=== PATIENT | female | born 1990 | race Hispanic/Latino ===

== ENCOUNTER 2018-11-02 15:55 | Outpatient (CLI) | payer MEDICAID ==
[2018-11-02] MEDS ORDERED: LACTATED RINGERS 500 ML IV ONE (18:09)
[2018-11-02] MEDS ORDERED: BICITRA PO ONE (18:12)
--- NOTE | 2018-11-02 18:21 | Event Note ---
Date: 11/02/18 Pt reports pain midline under xyphoid process that comes and goes, seems to be worse with standing. Patient denies feeling ctx, cramping, leaking or bleeding and reports + FM. pt reports seeing [facility] yesterday and they felt it was gallstones but she did not receive instructions FOR F/U. Abd palpated soft and nontender. Pt reports "drinking an entire bottle of pepto" to help ease the pain. Advised she should not be using peptobismal during . Pt normotensive, VSSAF. She denies any nausea and vomiting. Will give bictra and draw LFTs. Dr. Matthew consulted.
[2018-11-02 19:32] VITALS: BP 131/60
[2018-11-02 19:33] LABS: Alanine Aminotransferase 13 units/L (7-56); Albumin 3.5 g/dL (3.9-5)
[2018-11-02 19:44] LABS: Bilirubin,Direct < 0.2 mg/dL (0-0.2)
--- NOTE | 2018-11-02 20:07 | Event Note ---
Date: 11/02/18 pt reports relief after bicitra. Discussed gas pain and indigestion. pt verbalizes understanding, plan for d/c home with Pepcid RX, encouraged to call for any questions or concerns.
== END 2018-11-02 20:30 | disposition home or self-care (01) ==
LOC: TRG 15:55 → LD 15:56 → TRG 20:30
PROVIDERS: ATTEND Obstetrics & Gynecology
DX: O26.893 Other specified pregnancy related conditions, third trimester (principal); K30 Functional dyspepsia; R14.1 Gas pain; O47.03 False labor before 37 completed weeks of gestation, third trimester; Z3A.36 36 weeks gestation of pregnancy
CPT/HCPCS: 36415; 59025; 80076; 96360; J7120

== ENCOUNTER 2018-11-21 09:09 | Outpatient (CLI) | payer MEDICAID ==
--- NOTE | 2018-11-21 12:17 | Ultrasound Report ---
Pelvic Ultrasound with biophysical profile analysis HISTORY: maternal obesity wellbeing. TECHNIQUE: Grayscale and color Doppler imaging performed. COMPARISON: None FINDINGS: There is a single viable intrauterine gestation which is cephalic in presentation. Heart ra te is 118 bpm. BÁRBARA is 21 cm. The overall EGA is 39 weeks and 2 days by evaluating the biparietal diam eter, head circumference, abdominal circumference, and femoral length. The estimated delivery date is 11/26/2018. Placenta is seen anteriorly. On biophysical profile, the fetus received a score of 8 out of 8 when evaluating breathing movements, movements, posterior/tone, and BÁRBARA. IMPRESSION: 1. Single viable intrauterine gestation as outlined above. 2. Normal BPP. Signer Name: Brennen Pinedo MD Signed: 11/21/2018 12:12 PM Workstation Name: [id number]
[2018-11-21 12:22] VITALS: BP 124/75
== END 2018-11-21 12:50 | disposition home or self-care (01) ==
LOC: TRG 09:09
PROVIDERS: ATTEND Obstetrics & Gynecology
DX: O47.1 False labor at or after 37 completed weeks of gestation (principal); O26.893 Other specified pregnancy related conditions, third trimester; R10.13 Epigastric pain; Z3A.38 38 weeks gestation of pregnancy
CPT/HCPCS: 59025; 76816; 76819

== ENCOUNTER 2018-11-25 07:21 | Inpatient (IN) | payer MEDICAID ==
[2018-11-25] MEDS ORDERED: LACTATED RINGERS 1,000 ML ONE (07:54)
[2018-11-25] MEDS ORDERED: SUBLIMAZE ONE (08:06)
[2018-11-25] MEDS ORDERED: ZOFRAN ONE (08:07)
--- NOTE | 2018-11-25 08:25 | History and Physical Report ---
History of Present Illness Date of examination: 11/25/18 Date of admission: 11/25/18 07:29 Chief complaint: my water broke History of present illness: Pt presents to triage in active labor and SROM. States water broke at 0630 and was brownish in color. As per RN meconium is present. Pt desires epidural. EDC Confirmation: 11/26/2018 Gestational Age: 9 3/7 weeks Past History : 6 Term Births: 1 Premature Births: 1 Living Children: 2 Para: 2 Mult. Births: 0 Prev : 0 Aborta: 3 Elect. Ab: 0 Spont. Ab: 3 Ectopics: 0 # 1 Delivery date: 10/08/2012 Weeks Gestation: 41 Delivery type: Anesthesia type: epidural Infant Sex: Female weight: 7#8 Comments: Vac ext # 2 Delivery date: 02/03/2017 Weeks Gestation: 35? 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 of genital herpes: no Partner hx. of genital herpes: no Rash, Viral, or Febrile illness since last LMP? no Varicella/Chicken Pox Status: Previous Disease Genetic History Congenital Heart Defect: Mom: no Dad: no Becky Disease: Mom: no Dad: no Thalassemia Mom: no Dad: no Neural Tube Defect Mom: no Dad: no Down's Syndrome Mom: no Dad: yes Comments: FOB cousin Bunny-Sachs Mom: no Dad: no Sickle Cell Disease/Trait Mom: no Dad: no Hemophilia Mom: no Dad: no Muscular Dystrophy Mom: no Dad: no Cystic Fibrosis Mom: no Dad: no Daniele Chorea Mom: no Dad: no Mental Retardation Mom: no Dad: no Fragile X Mom: no Dad: no Other Genetic/Chromosomal Disorder Mom: no Dad: no Child w/other defect Mom: no Dad: no Enviromental Exposures Enviromental Exposures Reviewed Xray Exposure: no Medication, drug, or alcohol use since LMP: no Chemical/Other Exposure: no Exposure to Cat Liter: no Hx of Parvovirus (Fifth Disease): no Occupational Exposure to Children: none Current Allergies (reviewed today): * LATEX (Critical) * TRAMADOL (Critical) Past History Past Medical History: kidney stones Past Surgical History: other (benign tumor removed as a child) 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) Family/Genetic History: other (see hpi) - Obstetrical History Expected Date of Delivery: 11/26/18 Actual Gestation: 39 Week(s) 6 Day(s) : 6 Para: 2 Hx # Term Pregnancies: 1 Number of Pregnancies: 1 Spontaneous Abortions: 3 Induced : 0 Number of Living Children: 2 Medications and Allergies Allergies Allergy/AdvReac Type Severity Reaction Status Date / Time Latex, Natural Rubber Allergy Swelling Verified 03/14/16 17:13 tramadol Allergy Swelling Verified 11/21/18 09:46 watermelon Allergy Swelling Verified 03/14/16 17:15 Home Medications Medication Instructions Recorded Confirmed Last Taken Type Vit,Blaise 74/Iron/Folic 1 each PO DAILY 11/21/18 11/21/18 11/21/18 07:00 History [ Low Iron Tablet] 1 Review of Systems All systems: negative - Vital Signs Vital signs: Vital Signs Temp 97.0 F L 11/25/18 08:06 Temp Pulse Resp BP Pulse Ox 97.0 F L 11/25/18 08:06 - Obstetrical FHR: category 1 (difficult to trace due to body habitus) Uterine Contraction Monitor Mode: Internal Cervical Dilatation: 9.5 Cervical Effacement Percentage: 100 station: 0 Uterine Contraction Pattern: Regular Uterine Tone Measurement Phase: Resting Uterine Contraction Intensity: Moderate Results Result Diagrams: 11/25/18 08:10 All other labs normal. Assessment and Plan - Patient Problems (1) 39 weeks gestation of Current Visit: Yes Status: Acute (2) Active labor at term Current Visit: Yes Status: Acute Plan to address problem: -comfortable with epidural in place -anticipate (3) Meconium in amniotic fluid Current Visit: Yes Status: Acute (4) Morbid obesity due to excess calories Current Visit: Yes Status: Acute Plan to address problem: -no meconium seen on my examination -NICU to Resp to be present at time of delivery. -pt made aware of what meconium is and what will happen at time of delivery as well a risk of aspiration of the meconium
[2018-11-25] MEDS ORDERED: BRETHINE IVP PRN (08:28)
[2018-11-25] MEDS ORDERED: BRETHINE SUB-Q PRN (08:28)
[2018-11-25] MEDS ORDERED: MINERAL OIL PO PRN (08:28)
[2018-11-25] MEDS ORDERED: SUBLIMAZE IV PRN (08:28)
[2018-11-25 08:35] LABS: Hematocrit 34.5 % (30.3-42.9); Hemoglobin 11.7 gm/dl (10.1-14.3); Mean Corpuscular HGB Conc 34 % (30-34); Mean Corpuscular Volume 84 fl (79-97); Platelet Count 198 K/mm3 (140-440); Red Cell Distribution Width 14.7 % (13.2-15.2)
[2018-11-25] MEDS ORDERED: NARCAN 2 MG/2 ML IV PRN (08:41)
--- NOTE | 2018-11-25 08:41 | Anesthesia Consultation ---
Anesthesia Consult and Med Hx Date of service: 11/25/18 - Airway Anesthetic Teeth Evaluation: Good ROM Head & Neck: Adequate Mental/Hyoid Distance: Adequate Mallampati Class: Class II Intubation Access Assessment: Good - Pulmonary Exam CTA: Yes - Cardiac Exam Cardiac Exam: RRR - Pre-Operative Health Status ASA Pre-Surgery Classification: ASA2 Proposed Anesthetic Plan: Epidural - Pulmonary Hx Asthma: No - Cardiovascular System Hx Hypertension: No - Central Nervous System Hx Seizures: No Hx Psychiatric Problems: No - Endocrine Hx Renal Disease: No Hx Hypothyroidism: No Hx Hyperthyroidism: No - Hematic Hx Anemia: No Hx Sickle Cell Disease: No - Other Systems Hx Alcohol Use: No
[2018-11-25] MEDS ORDERED: MARCAINE 0.25% INFILTRATI ONE (08:47)
[2018-11-25] MEDS ORDERED: PITOCin/NS 20 UNIT/1000ML DRIP 20 UNITS/1,000 ML BAG IV SCH (09:00)
[2018-11-25] MEDS ORDERED: PITOCin/NS 30 UNIT/500ML 30 UNITS/500 ML BAG IV SCH (09:00)
[2018-11-25] MEDS ORDERED: fentaNYL-BUPIV 2 MCG/ML-0.125% 200 MCG/100 ML BAG EPIDURAL SCH (09:00)
[2018-11-25] MEDS ORDERED: XYLOCAINE 2% INFILTRATI ONE (09:00)
[2018-11-25] MEDS ORDERED: METHERGINE IM ONE ×2 (10:28→11:22)
[2018-11-25] MEDS ORDERED: LACTATED RINGERS 1,000 ML IV SCH (11:00)
--- NOTE | 2018-11-25 11:05 | Procedure Note ---
OB Delivery Note - Delivery Date of Delivery: 11/25/18 Surgeon: ROSA MUÑOZ Estimated blood loss: other (400) - Vaginal Delivery presentation: vertex Delivery position: OA Intrapartum events: meconium Delivery induction: none Delivery monitor: external FHT, external uterine Route of delivery: Delivery placenta: spontaneous (intact) Episiotomy: none Delivery laceration: 2nd degree (perienal and periruethral and left labial) Anesthesia: intravenous, epidural Delivery comments: Delivery as above. Infants head and ant shoulders delivered within 3 t0 5 pushes. There was no shoulder dystocia. Cord clamped x 2 and cut times one. was initially placed on maternal abdomen and then was taken to the [place] [facility] and placed. NICU team arrived shortly after delivery. Placenta delivered spontaneously intact. Laceration noted and repaired as noted above. EbL 400ml. - Infant A at 1 minute: 8 at 5 minutes: 9 Gender: Female (8lbs 2oz)
[2018-11-25] MEDS ORDERED: ZOFRAN IV PRN (11:06)
[2018-11-25] MEDS ORDERED: PHENERGAN PO PRN (11:06)
[2018-11-25] MEDS ORDERED: BENADRYL PO PRN (11:06)
[2018-11-25] MEDS ORDERED: MILK OF MAGNESIA PO PRN (11:06)
[2018-11-25] MEDS ORDERED: TYLENOL PO PRN (11:06)
[2018-11-25] MEDS ORDERED: DULCOLAX PR PRN (11:06)
[2018-11-25] MEDS ORDERED: TUCKS PAD TP PRN (11:06)
[2018-11-25] MEDS ORDERED: LANSINOH TP PRN (11:06)
[2018-11-25] MEDS ORDERED: PHENERGAN PR PRN (11:06)
[2018-11-25] MEDS: IBUPROFEN PO SCH ×3 (11:20→23:07)
[2018-11-25] MEDS ORDERED: SODIUM CHLORIDE FLUSH SYRINGE 10 ML IV NR (12:00)
[2018-11-25 23:10] LABS: Hematocrit 29.7 % (30.3-42.9); Hemoglobin 10.2 gm/dl (10.1-14.3)
[2018-11-26] MEDS: IBUPROFEN PO SCH (05:59)
--- NOTE | 2018-11-26 06:44 | Post Anesthesia Evaluation ---
- Post Anesthesia Evaluation Patient Participated: Yes Airway Patent: Yes Stable Respiratory Function: Yes Nausea/Vomiting: No Temp > 96.8F: Yes Pain Manageable: Yes Adequeate Hydration: Yes Anesthesia Complications: No Block Receding Appropriately: Yes Patient on Ventilator: No
--- NOTE | 2018-11-26 08:21 | Discharge Summary ---
Providers - Providers Date of Admission: 11/25/18 07:29 Date of discharge: 11/26/18 (patient desires discharge today) Attending physician: ROSA MUÑOZ Primary care physician: NELLI LEIGH Hospitalization Reason for admission: labor Condition: Good Pertinent studies: post delivery H&H 10.2/29.7, patient denies any dizziness or feeling faint with ambulation or position changes Procedures: Hospital course: uncomplicated and course Disposition: DC-01 TO HOME OR SELFCARE Core Measure Documentation - Palliative Care Palliative Care/ Comfort Measures: Not Applicable - Core Measures Any of the following diagnoses?: none Exam - Constitutional Vitals: Temp Pulse Resp BP Pulse Ox 98.7 F 64 16 104/78 97 11/26/18 04:00 11/26/18 04:00 11/26/18 04:00 11/26/18 04:00 11/25/18 16:18 General appearance: Present: no acute distress, well-nourished - EENT Eyes: Present: PERRL ENT: hearing intact, clear oral mucosa - Neck Neck: Present: supple, normal ROM - Respiratory Respiratory effort: normal Respiratory: bilateral: CTA - Cardiovascular Rhythm: regular Heart Sounds: Present: S1 & S2. Absent: rub, click - Extremities Extremities: pulses symmetrical, No edema Peripheral Pulses: within normal limits - Abdominal General gastrointestinal: Present: soft, non-tender, non-distended, normal bowel sounds Female genitourinary: Present: normal - Integumentary Integumentary: Present: clear, warm, dry - Musculoskeletal Musculoskeletal: gait normal, strength equal bilaterally - Psychiatric Psychiatric: appropriate mood/affect, intact judgment & insight - Neurologic Neurologic: CNII-XII intact, moves all extremities - Additional findings Additional findings: Patient reports feeling well, denies any complaints or concerns at this time. Fundus is firm, ML, U/1. Vaginal bleeding is minimal, patient denies any heavy bleeding or large clots. Patient reports pain is well controlled with medications, she reports a mild BARAJAS since last night, better with motrin. Pt would like to try tylenol this morning. Patient denies any visual disturbances, RUQ or epigastric pain, or other s/s. DTRs 2+, assessment WNL, BPs WNL. DWP PIH s/s, she denies any history or current symptoms. Encouraged pt to call with any signs or changes in assessment. Patient denies any dizziness or feeling faint with ambulation or position changes. Pt reports infant is doing well, she is attempting breast feeding, but mostly bottle feeding. Tips for discussed. Encouraged pt to increase water intake and frequent BF sessions. Patient desires discharge today. Will f/u in office in 4 weeks for ppv, pt plans for BTL. Plan Activity: no restrictions Diet: regular Wound: open to air, keep clean and dry Follow up with: NELLI LEIGH MD [Primary Care Provider] - 12/24/18 (Congratulations! Please call [phone] to schedule your appointment in 4 weeks. Please call with any other questions or concerns. )
[2018-11-26 12:45] VITALS: BP 125/72
== END 2018-11-26 12:50 | disposition home or self-care (01) | DRG 775 ==
LOC: TRG 07:21 → LD 07:29 → OB 12:03
PROVIDERS: ADMIT Obstetrics & Gynecology; ATTEND Obstetrics & Gynecology
PROC: 10E0XZZ Delivery of Products of Conception, External Approach (ICD-10-PCS; principal; 2018-11-25)
PROC: 0KQM0ZZ Repair Perineum Muscle, Open Approach (ICD-10-PCS; 2018-11-25)
PROC: 3E0R3BZ Introduction of Anesthetic Agent into Spinal Canal, Percutaneous Approach (ICD-10-PCS; 2018-11-25)
PROC: 00HU33Z Insertion of Infusion Device into Spinal Canal, Percutaneous Approach (ICD-10-PCS; 2018-11-25)
DX: O77.0 Labor and delivery complicated by meconium in amniotic fluid (principal); O99.214 Obesity complicating childbirth; E66.01 Morbid (severe) obesity due to excess calories; O70.1 Second degree perineal laceration during delivery; Z3A.39 39 weeks gestation of pregnancy; Z37.0 Single live birth; Z87.442 Personal history of urinary calculi; Z91.040 Latex allergy status; Z79.899 Other long term (current) drug therapy
CPT/HCPCS: 36415; 85014; 85018; 85027; 86592; 86850; 86900; 86901; 88307; G0378; J2210; J2405; J2590; J3010; J7120

== ENCOUNTER 2019-01-11 09:02 | Day surgery (SDC) | payer MEDICAID ==
--- NOTE | 2019-01-10 18:13 | History and Physical Report ---
History of Present Illness Date of examination: 01/07/19 History of present illness: Patient has been reassessed/reevaluated. H&P has been reviewed. No interval changes. Patient desires sterilization. Patient declined temporary contraceptives. Vital Signs: Patient Profile: 28 Years Old Female LMP: 12/31/2018 Height: 62 inches (157.48 cm) Weight: 265 pounds (120.45 kg) BMI: 48.46 BSA: 2.16 Menstrual History: LMP (date): 12/31/2018 LMP - Character: depo Menstrual flow: 7 days Past History : 6 Term Births: 2 Premature Births: 1 Living Children: 3 Para: 3 Mult. Births: 0 Prev : 0 Aborta: 3 Elect. Ab: 0 Spont. Ab: 3 Ectopics: 0 # 1 Delivery date: 10/08/2012 Weeks Gestation: 41 Delivery type: Anesthesia type: epidural Sex: Female weight: 7#8 Comments: Vac ext # 2 Delivery date: 02/03/2017 Weeks Gestation: 35? 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 of genital herpes: no Partner hx. 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 Denies vaginal discharge, incontinence, dysuria, hematuria, urinary frequency, amenorrhea, menorrhagia, abnormal vaginal bleeding, pelvic pain, genital sores, decreased libido, painful periods, painful sex, urinary urgency, hot flashes, vaginal dryness, vaginal itching and vaginal odor. CV Denies chest pains, palpitations, syncope, dyspnea on exertion, orthopnea, PND and peripheral edema. Resp Denies cough, dyspnea at rest, excessive sputum, hemoptysis, wheezing and pleurisy. GI Denies nausea, vomiting, diarrhea, constipation, change in bowel habits, abdominal pain, melena, hematochezia, jaundice, gas/bloating, indigestion/heartburn, dysphagia and odynophagia. Breast Denies left breast lump, right breast lump, nipple discharge, bloody discharge from nipple, breast pain, abnormal mammogram and breast enlargement. Psych Denies depression, anxiety, irritability and mood swings. Past History Past Medical History: other (SEE HPI) Past Surgical History: Other (SEE HPI) Social history: full code (Patient desires sterilization. Patient declined temporary contraceptives. ), other (SEE HPI) Family history: other (SEE HPI) Medications and Allergies Allergies Allergy/AdvReac Type Severity Reaction Status Date / Time Latex, Natural Rubber Allergy Swelling Verified 01/04/19 15:26 tramadol Allergy Swelling Verified 01/04/19 15:26 watermelon Allergy Swelling Verified 01/04/19 15:26 Home Medications Medication Instructions Recorded Confirmed Last Taken Type No Known Home Medications [No 01/04/19 01/04/19 Unknown History Reported Home Medications] Review of Systems Constitutional: other (SEE HPI) Exam - Physical Exam Narrative exam: HEENT: normocephalic, no lesions or deformities Skin no ulcers, xanthomas Chest: respiratory effort normal, clear to auscultation CV: normal rate and rhythm Abdomen: soft, non-tender, no masses, bowel sounds normal Musculoskeletal: grossly normal ROM in joints, no joint tenderness or muscle weakness Neuro: no gross anomalities Extremities: no clubbing, cyanosis, or edema 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 No evidence of cystocele or rectocele. Cervix: normal appearance, no lesions, no discharge Uterus: normal position, midline, mobile Adnexae: no masses or tenderness Assessment and Plan - Patient Problems (1) Encounter for sterilization Current Visit: No Status: Acute Plan to address problem: Patient desires sterilization.Discuss the permanency of sterilization. High risk of regret and 0.5 to 1% risk of failure. Discussed the different risk of abdominal versus vaginal approaches Patient desires laparoscopic tubal ligation Discuss the risks of the surgery including infection, bleeding possibly heavy enough to require a blood transfusion, possible damage to adjacent organs. Discuss permanent nature of the procedure and the 1% failure rate. Discuss of possibility of laparotomy needed. Patient understands and desires to proceed.
--- NOTE | 2019-01-11 11:07 | Anesthesia Day of Surgery ---
Anesthesia Day of Surgery - Day of Surgery Patient Examined: Yes Patient H&P Reviewed: Yes Patient is NPO: Yes
--- NOTE | 2019-01-11 11:11 | Anesthesia Consultation ---
Anesthesia Consult and Med Hx Date of service: 01/11/19 - Airway Anesthetic Teeth Evaluation: Good ROM Head & Neck: Adequate Mental/Hyoid Distance: Adequate Mallampati Class: Class II Intubation Access Assessment: Good - Pre-Operative Health Status ASA Pre-Surgery Classification: ASA2 Proposed Anesthetic Plan: General - Pulmonary Hx Asthma: No - Cardiovascular System Hx Hypertension: No Hx Heart Murmur: Yes - Central Nervous System Hx Seizures: No Hx Psychiatric Problems: No - Endocrine Hx Renal Disease: No Hx Hypothyroidism: No Hx Hyperthyroidism: No - Hematic Hx Anemia: No Hx Sickle Cell Disease: No - Other Systems Hx Alcohol Use: No Hx Cancer: No
[2019-01-11] MEDS ORDERED: SUBLIMAZE IV PRN (11:30)
[2019-01-11] MEDS ORDERED: ZOFRAN IV PRN (11:30)
[2019-01-11] MEDS ORDERED: VERSED IV NR (12:00)
[2019-01-11] MEDS ORDERED: LACTATED RINGERS 1,000 ML IV SCH (12:00)
[2019-01-11] MEDS ORDERED: MARCAINE 0.25% INFILTRATI ONE (12:34)
[2019-01-11] MEDS ORDERED: SUBLIMAZE ONE (12:37)
[2019-01-11] MEDS ORDERED: DIPRIVAN 10 MG/ML IV ONE (12:37)
[2019-01-11] MEDS ORDERED: XYLOCAINE MPF 2% ONE (12:38)
[2019-01-11] MEDS ORDERED: ZEMURON IV ONE (12:39)
[2019-01-11] MEDS ORDERED: ZOFRAN ONE (13:18)
[2019-01-11] MEDS ORDERED: DECADRON ONE (13:18)
[2019-01-11] MEDS ORDERED: MARCAINE 0.5% INFILTRATI ONE (13:44)
[2019-01-11] MEDS ORDERED: NACL 0.9% IR ONE (13:45)
[2019-01-11] MEDS ORDERED: BLOXIVERZ ONE (13:55)
[2019-01-11] MEDS ORDERED: ROBINUL ONE (13:55)
[2019-01-11] MEDS ORDERED: DILAUDID ONE (14:06)
[2019-01-11] MEDS ORDERED: LACTATED RINGERS 1,000 ML ONE (14:08)
--- NOTE | 2019-01-11 14:22 | Short Stay Summary ---
Short Stay Documentation Date of service: 01/11/19 - History H&P: dictated Past Medical History: other (SEE HPI) Past Surgical History: Other (SEE HPI) Social history: full code (Patient desires sterilization. Patient declined temporary contraceptives. ), other (SEE HPI) - Allergies and Medications Current Medications: Allergies Latex, Natural Rubber Allergy (Verified 01/04/19 15:26) Swelling tramadol Allergy (Verified 01/04/19 15:26) Swelling watermelon Allergy (Verified 01/04/19 15:26) Swelling Home Medications Medication Instructions Recorded Confirmed Last Taken Type Ketorolac [Toradol] 10 mg PO Q6H PRN #20 tablet 01/11/19 Unknown Rx Active Medications Fentanyl (Sublimaze) 50 mcg IV Q5MIN PRN PRN Reason: Pain , Severe (7-10) Stop: 01/11/19 17:00 Lactated Ringer's (Lactated Ringers) 1,000 mls @ 100 mls/hr IV DIRECT LORNA Last Admin: 01/11/19 11:19 Dose: 100 mls/hr Documented by: Midazolam HCl (Versed) 2 mg IV PREOP NR Stop: 01/11/19 23:59 Last Admin: 01/11/19 12:30 Dose: 2 mg Documented by: Ondansetron HCl (Zofran) 4 mg IV ONCE PRN PRN Reason: Nausea And Vomiting Stop: 01/11/19 20:00 - Brief post op/procedure progress note Date of procedure: 01/11/19 (see operative note) - Hospital course Hospital course: Patient was admitted underwent the above him procedure without any complications. Patient will be discharged with follow-up in office in 1-2 weeks for postop check. - Disposition Condition at discharge: Good Disposition: DC-01 TO HOME OR SELFCARE - Discharge Diagnoses (1) Encounter for sterilization Status: Acute Short Stay Discharge Plan Activity: advance as tolerated Diet: regular Additional Instructions: Patient office for fever chills nausea vomiting or pain uncontrolled by pain medication. Please keep scheduled postoperative appointment Follow up with: PRIMARY CARE, [Primary Care Provider] - 7 Days Prescriptions: Ketorolac [Toradol] 10 mg PO Q6H PRN #20 tablet PRN Reason: Pain
--- NOTE | 2019-01-11 14:27 | Operative Report ---
Operative Report Operative Report: Pre-operative diagnosis: Patient desires permanent sterilization Post-operative diagnosis: Same Procedure name(s): Laparoscopic bilateral salpingectomy Surgeon: Alistair Cordova MD Senior Revenue Accountant: [] Anesthesia: General endotracheal EBL: Minimal Complications: None Findings: Patient with uterus approximately 8-10 weeks in size with normal fallopian tubes bilaterally Specimen(s): Right and left fallopian tube Patient was brought in the operating room. General anesthesia was induced without difficulty. She was placed in dorsal lithotomy position. Prepped and draped in usual sterile manner. Her urinary bladder with was emptied with a red rubber catheter. Speculum placed in her vagina and Sargis uterine manipulator was placed for uterine manipulation. Attention was then switched to the patient's abdomen. An infra-umbilical incision was made with a scalpel. This incision was spread with a hemostat. A 5 mm trocar was placed in this incision while lifting high the abdominal wall. Intra-abdominal presence was verified directly with the laparoscope. The patient was then insufflated to approximately 3 L of CO2 gas. The patient's findings as noted above. Two accessory punctures were made. Right lower quadrant one 8 mm trocar was placed under direct visualization without evidence of internal organ damage. A 5 mm trocar was placed under direct visualization without evidence of internal organ damage her left lower quadrant. Each of the fallopian tubes were identified by its fimbriated end. A portion approximately 1-2 cm from each cornua was grasped and transected. Mesosalpinx under the fallopian tube was cauterized and cut with the bipolar cutting instruments into the fimbria and was reached and the tube was completely detached. The mesosalpinx was hemostatic. The fallopian tubes were pulled through the 8 mm trocar on the patient's right intact. At this time all instruments were removed. The patient was deinsufflated. The skin incisions were closed subcuticular with 4-0 Vicryl. Marcaine was given subcuticularly for postoperative pain relief. The patient tolerated procedure well. She was awakened in the operating room and accompanied to the recovery room in good condition.
[2019-01-11] MEDS ORDERED: NORCO 5/325 PO PRN (15:15)
[2019-01-11 15:26] VITALS: BP 131/70
--- NOTE | 2019-01-11 16:53 | Post Anesthesia Evaluation ---
- Post Anesthesia Evaluation Patient Participated: Yes Airway Patent: Yes Stable Respiratory Function: Yes Nausea/Vomiting: No Temp > 96.8F: Yes Pain Manageable: Yes Adequeate Hydration: Yes Anesthesia Complications: No Block Receding Appropriately: Not Applicable Patient on Ventilator: No
== END 2019-01-11 16:00 | disposition home or self-care (01) ==
LOC: OR 09:02
PROVIDERS: ATTEND Obstetrics & Gynecology
DX: Z30.2 Encounter for sterilization (principal); N83.8 Other noninflammatory disorders of ovary, fallopian tube and broad ligament; E66.01 Morbid (severe) obesity due to excess calories; G43.909 Migraine, unspecified, not intractable, without status migrainosus; K21.9 Gastro-esophageal reflux disease without esophagitis; Z79.899 Other long term (current) drug therapy; Z91.040 Latex allergy status; Z68.42 Body mass index [BMI] 45.0-49.9, adult; Z87.442 Personal history of urinary calculi; Z80.8 Family history of malignant neoplasm of other organs or systems; Z83.3 Family history of diabetes mellitus; Z98.890 Other specified postprocedural states; Z88.8 Allergy status to other drugs, medicaments and biological substances
CPT/HCPCS: 58670; 81025; 82803; 88302; J1100; J1170; J2250; J2405; J2704; J2710; J3010; J7120